=== PATIENT | male | born 1985 | race Caucasian/White ===

== ENCOUNTER 2019-08-30 15:28 | Emergency (ER) | payer OTHER, SELFPAY ==
[~2019-08-30] VITALS: Ht 172.7 cm; Wt 77.1 kg
[2019-08-30 15:40] VITALS: BP 125/74; Ht 172.7 cm; Wt 77.1 kg
== END 2019-08-30 17:02 | disposition home or self-care (01) ==
LOC: ED 15:28
DX: B34.9 Viral infection, unspecified (principal)